=== PATIENT | female | born 1990 | race Caucasian/White ===

== ENCOUNTER 2017-02-14 15:45 | Observation (INO) | payer MEDICAID ==
[~2017-02-14] VITALS: Ht 152.4 cm; Wt 66.2 kg
[2017-02-14] MEDS ORDERED: LACTATED RINGERS 1,000 ML IV SCH (16:00)
[2017-02-14] MEDS ORDERED: TERBUTALINE 1 MG/ML VIAL SUBQ SCH (16:00)
[2017-02-14] MEDS ORDERED: TERBUTALINE 1 MG/ML VIAL SUBQ ONE (16:17)
[2017-02-14] MEDS ORDERED: BETAMETH ACET/BETAMETH NA PH 30 MG/5 ML VIAL IM ONE (16:17)
[2017-02-14] MEDS ORDERED: BETAMETH ACET/BETAMETH NA PH 30 MG/5 ML VIAL IM SCH (16:30)
[2017-02-14 16:45] LABS: APPEARANCE,URINE HAZY (CLEAR); BARBITURATE, URINE NEG. ng/ml (NEG <=200); BENZODIAZEPINE, URINE NEG. ng/mL (NEG <=200); BILIRUBIN,URINE NEGATIVE (NEGATIVE); BLOOD, URINE NEGATIVE (NEGATIVE); CANNABINOID, URINE NEG. ng/mL (NEG <=50); COCAINE, URINE NEG. ng/mL (NEG <=300); COLOR,URINE YELLOW (YELLOW); LEUKOCYTE ESTERASE ,URINE NEGATIVE (NEGATIVE); NITRITE, URINE NEGATIVE (NEGATIVE); OPIATE, URINE NEG. ng/mL (NEG <=2000); PH,URINE 6.5 (5.0-9.0); PHENCYCLIDINE SCREEN,URINE NEG. ng/mL (NEG <=25); UGLUCOSE NEGATIVE (NEGATIVE)
[2017-02-14 16:47] LABS: RBC,URINE 0-5 (RARE) /HPF (0-5); WBC,URINE 0-5 (RARE) /HPF (0-5)
[2017-02-14] MEDS ORDERED: AMPICILLIN 2,000 MG VIAL ONE (22:19)
[2017-02-14] MEDS: AMPICILLIN 2,000 MG in NACL 0.9% 100 ML IV SCH (22:30)
[2017-02-15] MEDS ORDERED: AMPICILLIN 2,000 MG VIAL ONE (04:12)
[2017-02-15] MEDS ORDERED: BETAMETH ACET/BETAMETH NA PH 30 MG/5 ML VIAL IM ONE ×2 (04:21→04:31)
[2017-02-15] MEDS: AMPICILLIN 2,000 MG in NACL 0.9% 100 ML IV SCH (04:28)
--- NOTE | 2017-02-15 06:59 | NUR ---
PATIENT HAS BEEN SCREENED AND CATEGORIZED LOW NUTRITION RISK. PATIENT WILL BE SEEN WITHIN 7 DAYS OF ADMISSION. 02/21/17 GEORGE KEEN MS, RDN
== END 2017-02-15 08:15 | disposition home or self-care (01) ==
LOC: MLD 15:45
PROVIDERS: ADMIT Obstetrics & Gynecology; ATTEND Obstetrics & Gynecology
DX: O62.9 Abnormality of forces of labor, unspecified (principal); O26.893 Other specified pregnancy related conditions, third trimester; R10.9 Unspecified abdominal pain; Z3A.33 33 weeks gestation of pregnancy
CPT/HCPCS: 76805; 80305; 81001; 87086; 96361; 96365; 96372; 96375; G0378; J0290; J0702; J3105; J7120; Q0092